=== PATIENT | male | born 1990 | race Two or more races ===

== ENCOUNTER 2020-08-17 09:27 | Emergency (ER) | payer OTHER ==
[~2020-08-17] VITALS: Ht 33 cm; Wt 0.5 kg
== END 2020-08-17 13:42 | disposition home or self-care (01) ==
LOC: ER 09:27
DX: R11.0 Nausea (principal); R42 Dizziness and giddiness; T50.Z95A Adverse effect of other vaccines and biological substances, initial encounter; Y92.89 Other specified places as the place of occurrence of the external cause

== ENCOUNTER 2020-11-22 12:30 | Outpatient (CLI) | payer OTHER | END 2020-11-22 12:43 | disposition home or self-care (01) | LOC: MRI 12:30 | PROVIDERS: ATTEND Family Medicine | DX: M72.2 Plantar fascial fibromatosis (principal) | CPT/HCPCS: 73718 ==

== ENCOUNTER 2021-11-25 11:00 | Outpatient (CLI) | payer OTHER | END 2021-11-25 11:04 | disposition home or self-care (01) | LOC: RAD 11:00 | PROVIDERS: ATTEND Family Medicine | DX: M72.2 Plantar fascial fibromatosis (principal) ==

== ENCOUNTER → 2021-12-05 | Outpatient (CLI) | payer OTHER | END | disposition home or self-care (01) | LOC: MRI 13:53 | PROVIDERS: ATTEND Family Medicine | DX: M25.561 Pain in right knee (principal) | CPT/HCPCS: 73718 ==

== ENCOUNTER 2022-02-11 20:32 | Emergency (ER) | payer OTHER ==
[~2022-02-11] VITALS: Ht 162.6 cm; Wt 83.9 kg
== END 2022-02-12 01:36 | disposition home or self-care (01) ==
LOC: ER 20:32
DX: R42 Dizziness and giddiness (principal); R53.81 Other malaise; Z20.822 Contact with and (suspected) exposure to COVID-19